=== PATIENT | female | born 1965 | race Caucasian/White ===

== ENCOUNTER 2022-04-17 11:14 | Emergency (ER) | payer OTHER ==
[2022-04-17] MEDS ORDERED: NORCO 5-325 TA1 EACH PO (12:34)
== END 2022-04-17 13:21 | disposition home or self-care (01) ==
LOC: FER 11:14
DX: S52.572A Other intraarticular fracture of lower end of left radius, initial encounter for closed fracture (principal); I10 Essential (primary) hypertension; Z79.899 Other long term (current) drug therapy; V89.9XXA Person injured in unspecified vehicle accident, initial encounter; Y92.89 Other specified places as the place of occurrence of the external cause; Y99.0 Civilian activity done for income or pay
CPT/HCPCS: 73090; 73110